=== PATIENT | female | born 1980 | race African-American/Black ===

== ENCOUNTER 2018-02-21 21:59 | Emergency (ER) | payer BC ==
[~2018-02-21] VITALS: Ht 167.6 cm; Wt 99.5 kg
[2018-02-21 22:03] VITALS: TEMP 98.5
[2018-02-21] MEDS ORDERED: CIPRO 100MG TA100 MG PO (22:12)
[2018-02-21 22:39] LABS: BASO # 0.1 (0.0-0.2); BASO % 0.6 % (0.0-2.0); EOS # 0.3 (0.0-0.7); GRAN # 7.8 (1.4-6.5); GRAN % 58.8 % (42.2-75.2); HEMATOCRIT 41.5 % (37.0-47.0); HEMOGLOBIN 13.3 g/dl (12.5-16.0); LYMPH # 4.4 (1.2-3.4); LYMPH % 32.9 % (20.0-51.0); MEAN CELL VOLUME 81 fl (80.0-100.0); MEAN CORPUSCULAR HEMOGLOBIN 26 pg (27.0-31.0); MEAN CORPUSCULAR HGB CONC 32 g/dl (33.0-37.0); MONO # 0.7 (0.1-0.6); MONO % 5.1 % (1.7-9.3); PLATELET COUNT 523 K/mm3 (130-400); RED BLOOD COUNT 5.14 M/mm3 (4.10-5.30); REDCELL DISTRIBUTION WIDTH-CV 14.6 % (11.5-14.5)
[2018-02-21] MEDS ORDERED: XANAX 1MG1 MG PO (22:40)
[2018-02-21] MEDS ORDERED: CIPRO 500MG TA500 MG PO (22:40)
[2018-02-21] MEDS ORDERED: AMARYL4 MG PO (22:41)
[2018-02-21] MEDS ORDERED: HYZAAR 12.5 MG-1 TAB PO (22:42)
[2018-02-21] MEDS ORDERED: JANUMXR1000-50 PO (22:42)
[2018-02-21] MEDS ORDERED: ZOLOFT 50MG50 MG PO (22:43)
[2018-02-21 22:53] LABS: ALBUMIN 4.5 gm/dL (3.5-5.0); BILIRUBIN,TOTAL 0.5 mg/dL (0.0-1.0); C-REACTIVE PROTEIN 1.4 mg/dL (0.0-0.9); CALCIUM 9.5 mg/dL (8.4-10.2); CREATININE, serum 0.7 mg/dL (0.52-1.25); POTASSIUM 3.3 mmol/L (3.4-5.0); TOTAL PROTEIN 8.1 gm/dL (6.4-8.2)
[2018-02-21 23:49] LABS: COLLECTION METHOD CLEAN CATCH
[2018-02-21 23:55] LABS: MUCOUS Present /lpf; PH 5 (5-8); URINE APPEARANCE Cloudy; URINE BACTERIA None Seen /hpf; URINE BILIRUBIN Negative (NEGATIVE); URINE BLOOD Negative (NEGATIVE); URINE COLOR Yellow; URINE GLUCOSE Negative (NEGATIVE); URINE KETONE Negative (NEGATIVE); URINE LEUKOCYTE ESTERASE 3+ (NEGATIVE); URINE NITRATE Negative (NEGATIVE); URINE PROTEIN(semi-quant) Negative (NEGATIVE); URINE UROBILINOGEN Negative (NEGATIVE)
[2018-02-22] MEDS ORDERED: CEFTIN500 MG PO (01:10)
[2018-02-22] MEDS ORDERED: PHENERGAN 25 TA25 MG PO (01:10)
[2018-02-22 02:10] VITALS: BP 123/83; PULSE 89
== END 2018-02-22 02:58 | disposition home or self-care (01) ==
LOC: COL.ER 21:59
PROVIDERS: Emergency Medicine
DX: N39.0 Urinary tract infection, site not specified (principal); E11.9 Type 2 diabetes mellitus without complications; F17.210 Nicotine dependence, cigarettes, uncomplicated; Z90.89 Acquired absence of other organs; Z90.49 Acquired absence of other specified parts of digestive tract; Z98.51 Tubal ligation status; Z79.84 Long term (current) use of oral hypoglycemic drugs
CPT/HCPCS: J0696; J1170; J2550; J7030; Q9967